=== PATIENT | female | born 1965 | race Caucasian/White ===

== ENCOUNTER 2023-09-28 08:54 | Day surgery (SDC) | payer OTHER ==
[2023-09-23 14:59] VITALS: BMI 18.4
[2023-09-28 11:41] VITALS: PULSE 84
[2023-09-28 11:58] VITALS: BP 118/70; RESP 18; TEMP 97.2
== END 2023-09-28 11:58 | disposition home or self-care (01) ==
LOC: FASU-ENDO 08:54
PROVIDERS: ATTEND Internal Medicine Gastroenterology
PROC: 0DBN8ZX Excision of Sigmoid Colon, Via Natural or Artificial Opening Endoscopic, Diagnostic (ICD-10-PCS; principal; 2023-09-28 10:11)
DX: Z12.11 Encounter for screening for malignant neoplasm of colon (principal); D12.5 Benign neoplasm of sigmoid colon; Z83.719 Family history of colon polyps, unspecified
CPT/HCPCS: 88305-TC